=== PATIENT | male | born 1985 | race Caucasian/White ===

== ENCOUNTER 2021-05-26 01:34 | Emergency (ER) | payer OTHER ==
[2021-05-26 01:50] VITALS: BP 119/69; PULSE 72; TEMP 98.1; BMI 28.7
[2021-05-26] MEDS ORDERED: IBUPROFEN 600 MG TABLET (FP) PO ONE ×2 (02:46→03:01)
[2021-05-26] MEDS ORDERED: DIPHTH,PERTUSS(ACELL),TET 0.5 ML DISP.SYRIN IM ONE ×2 (02:57→03:02)
== END 2021-05-26 03:54 | disposition home or self-care (01) ==
LOC: JER 01:34
PROC: 0HQGXZZ Repair Left Hand Skin, External Approach (ICD-10-PCS; principal; 2021-05-26)
PROC: 3E0234Z Introduction of Serum, Toxoid and Vaccine into Muscle, Percutaneous Approach (ICD-10-PCS; 2021-05-26)
DX: S61.217A Laceration without foreign body of left little finger without damage to nail, initial encounter (principal); W31.2XXA Contact with powered woodworking and forming machines, initial encounter
CPT/HCPCS: 12001-25; 73140-TC-LT-FY; 90471; 90715; 99283-25

== ENCOUNTER 2022-05-19 23:36 | Emergency (ER) | payer OTHER ==
[2022-05-19] MEDS ORDERED: IBUPROFEN 600 MG TABLET (FP) PO ONE ×2 (23:38→23:44)
[2022-05-19 23:44] VITALS: BP 116/74; PULSE 68; RESP 18; TEMP 98.4; BMI 27.2
== END 2022-05-20 00:38 | disposition home or self-care (01) ==
LOC: FER 23:36
DX: S90.32XA Contusion of left foot, initial encounter (principal); W22.8XXA Striking against or struck by other objects, initial encounter; Y93.72 Activity, wrestling; Y92.094 Garage of other non-institutional residence as the place of occurrence of the external cause
CPT/HCPCS: 73630-TC-LT; 99283-25